=== PATIENT | female | born 1975 | race Hispanic/Latino ===

== ENCOUNTER → 2016-10-17 | Outpatient (CLI) | payer OTHER ==
[2016-10-18 14:14] LABS: Lyme Disease IgG/IgM Antibodie <0.91 ISR (0.00-0.90); Lyme Disease IgM Ab Quantitati <0.80 index (0.00-0.79)
== END ==
LOC: M SMT 09:39
PROVIDERS: ATTEND Family Medicine
DX: M76.52 Patellar tendinitis, left knee (principal)

== ENCOUNTER → 2016-11-06 | Outpatient (CLI) | payer OTHER ==
--- NOTE | 2016-11-06 20:15 | REP ---
MRI LEFT KNEE WITHOUT CONTRAST: 11/06/2016. CLINICAL HISTORY: Chronic left knee pain, no known injury. Symptoms one year. TECHNIQUE: Axial fat suppressed PD. Coronal PD and fat suppressed PD with sagittal PD, T2 STIR and gradient echo images. COMPARISON: X-ray 05/08/2016. FINDINGS: Both the ACL and PCL show intact contiguous fibers along their course. There is fluid in the intercondylar notch, however. Some increased signal along the distal fibers of the ACL. No marrow edema or bone bruise in the interspinous region of the tibial plateau. No tibial plateau edema or compression/depressed fracture. Femoral condyles without fracture or bone bruise. The medial meniscus shows no evidence of intrameniscal tear or loose body. There is mild grade 1 chondromalacia of the medial compartment without osteochondral defect or bone bruise. The medial collateral ligamentous complex and patellar retinaculum are intact. There is no popliteal fossa cyst about the medial femoral condyle. The lateral meniscus shows some heterogeneous increased signal in the anterior horn suggesting a partial tear. Posterior horn intact. There is no displaced fragment or loose body in the lateral compartment. There is chondromalacia, grade 1-2 lateral compartment without osteochondral defect, bone bruise or fracture. The proximal tibiofibular articulation intact. Popliteus tendon is normal. The lateral collateral ligamentous complex and patellar retinaculum show no tear. There is some fluid deep to the retinaculum in the bursal recess along the lateral femoral condyle. Chondromalacia patella noted with a small suprapatellar effusion. No plica evident on these images. The quadriceps and patellar tendons are intact. IMPRESSION: 1. Small joint effusion with minor strain distal fibers ACL without a tear; contiguous fibers are noted in both of these ligaments.2. No tear of the medial meniscus, collateral ligamentous complex or patellar retinaculum.3. Extensor mechanism intact.4. There is partial tearing with complex features in the anterior horn lateral meniscus without a displaced meniscal fragment or loose body. No bone bruise, fracture or focal lesion of the tibial plateau, proximal fibula or distal femur. 5. 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 No loose bodies. Signed by Favio Ramos MD 11/06/2016 08:17 P
== END ==
LOC: M RAD 12:06
PROVIDERS: ATTEND Orthopaedic Surgery
DX: M25.462 Effusion, left knee (principal); M23.342 Other meniscus derangements, anterior horn of lateral meniscus, left knee; M22.42 Chondromalacia patellae, left knee

== ENCOUNTER → 2016-11-21 | Outpatient (CLI) | payer OTHER ==
[2016-11-21 13:35] LABS: INR 0.96
[2016-11-21 14:13] LABS: ANION GAP 6 MEQ/L (8-16); BLOOD UREA NITROGEN 12 MG/DL (7-18); CARBON DIOXIDE LEVEL 31 MEQ/L (21-32); CHLORIDE LEVEL 101 MEQ/L (98-107); CREATININE FOR GFR 0.72 MG/DL (0.55-1.02); GLOMERULAR FILTRATION RATE > 60.0 (>58); GLUCOSE, FASTING 85 MG/DL (70-105); POTASSIUM SERUM 4.5 MEQ/L (3.5-5.1); SODIUM LEVEL 138 MEQ/L (136-145)
[2016-11-21 14:22] LABS: BASO % 0.6 % (0.0-1.0); EOS # 0.2 K/mm3 (0.0-0.50); EOS % 2.2 % (0.0-3.0); LARGE UNSTAINED CELL # 0.1 K/mm3 (0.0-0.4); LARGE UNSTAINED CELL % 1.7 % (0.0-4.0); LYMPH # 1.5 K/mm3 (1.5-4.5); LYMPH % 21.6 % (24.0-44.0); MEAN CORPUSCULAR HEMOGLOBIN 30.8 pg (27.0-33.0); MEAN CORPUSCULAR HGB CONC 34.5 g/dl (32.0-36.5); MEAN CORPUSCULAR VOLUME 89.4 fl (80.0-96.0); MONO # 0.4 K/mm3 (0.0-0.8); MONO % 5.4 % (0.0-5.0); NEUTROPHILS # 4.9 K/mm3 (1.8-7.7); NEUTROPHILS % 68.5 % (36.0-66.0); PLATELET COUNT, AUTOMATED 314 k/mm3 (150-450); RED CELL DISTRIBUTION WIDTH 12.6 % (11.5-14.5); WHITE BLOOD COUNT 7.1 K/mm3 (4.0-10.0)
== END ==
LOC: M SMT 11:42
PROVIDERS: ATTEND Physician Assistant
DX: Z01.812 Encounter for preprocedural laboratory examination (principal)